=== PATIENT | female | born 1995 ===

== ENCOUNTER 2017-07-09 20:11 | Emergency (ER) | payer BC ==
[2017-07-09 20:28] VITALS: BP 109/76; PULSE 92; RESP 16; O2SAT 99
--- NOTE | 2017-07-09 22:34 | ED PDOC ---
HPI: Headache Time Seen by Provider: 07/09/17 22:20 Chief Complaint (Nursing): Headache Chief Complaint (Provider): headache History Per: Patient History/Exam Limitations: no limitations Onset/Duration Of Symptoms: Days (5) Current Symptoms Are (Timing): Still Present Associated Symptoms: Nausea, Vomiting Additional History Per: Patient Additional Complaint(s): 21 y/o female history of migraines presents with headache x 5 days. Patient states she hit the right side of her head on a bed post; did not lose consciousness but states she cried from the pain. Patient states since then she has been fatigued, seeing "stars" when she works out, and having right- sided headaches. Patient states today she developed bodyaches, felt chills, runny nose, sore throat, and vomited once. Denies dizziness, vision changes, numbness/weakness of extremities, cough, congestion, chest pain, shortness of breath, palpitations, abdominal pain, changes in bowel movements, recent travel , sick contacts. Tylenol taken in the am. Past Medical History Reviewed: Historical Data, Nursing Documentation, Vital Signs Vital Signs: Last Vital Signs Temp 100.4 F H 07/09/17 20:23 Pulse 92 H 07/09/17 20:23 Resp 16 07/09/17 20:23 BP 109/76 07/09/17 20:23 Pulse Ox 99 07/09/17 20:23 - Medical History PMH: Migraine - Surgical History Surgical History: No Surg Hx - Family History Family History: States: No Known Family Hx - Home Medications Home Medications: Ambulatory Orders Medication Instructions Recorded Ibuprofen [Motrin Tab] 1 tab PO Q6 PRN #15 tab 07/10/17 Oseltamivir [Tamiflu] 75 mg PO BID #10 cap 07/10/17 - Allergies Allergies/Adverse Reactions: Allergies Allergy/AdvReac Type Severity Reaction Status Date / Time No Known Allergies Allergy Verified 07/09/17 20:28 Review of Systems ROS Statement: Except As Marked, All Systems Reviewed And Found Negative Constitutional: Positive for: Fever, Chills ENT: Positive for: Nose Discharge, Throat Pain Neurological: Positive for: Headache Physical Exam - Reviewed Nursing Documentation Reviewed: Yes Vital Signs Reviewed: Yes - Physical Exam Appears: Positive for: Well, Non-toxic, No Acute Distress Head Exam: Positive for: ATRAUMATIC, NORMAL INSPECTION, NORMOCEPHALIC Skin: Positive for: Normal Color Eye Exam: Positive for: Normal appearance, EOMI, PERRL ENT: Positive for: Normal ENT Inspection Neck: Positive for: Normal, Painless ROM Cardiovascular/Chest: Positive for: Regular Rate, Rhythm Respiratory: Positive for: Normal Breath Sounds Gastrointestinal/Abdominal: Positive for: Normal Exam Back: Positive for: Normal Inspection Extremity: Positive for: Normal ROM Neurologic/Psych: Positive for: Alert, Oriented. Negative for: Motor/Sensory Deficits - Laboratory Results Urine POC: Negative Urine dip results: Positive for: Ketones. Negative for: Leukocyte Esterase, Blood, Nitrate - ECG O2 Sat by Pulse Oximetry: 99 - Progress ED Course And Treament: flu, CT head, urine, Tylenol PO EXAM: CT Head Without Intravenous Contrast CLINICAL HISTORY: The patient is a 21 years female; Injury or trauma; Injury Right temporal trauma ; Additional info: Head injury 07/09/2017 10:32 PM TECHNIQUE: Axial computed tomography images of the head/brain without intravenous contrast. All CT scans at this facility use one or more dose reduction techniques, viz.: automated exposure control; ma/kV adjustment per patient size (including targeted exams where dose is matched to indication; i.e. head); or iterative reconstruction technique. Coronal and sagittal reformatted images were created and reviewed. COMPARISON: No relevant prior studies available. FINDINGS: Brain: Streak artifact limits evaluation of the skull base. No evidence of acute intracranial hemorrhage. Correlate clinically. No significant white matter disease. No edema. Ventricles: Unremarkable. No ventriculomegaly. Bones/joints: Unremarkable. No acute fracture. Soft tissues: Unremarkable. Sinuses: Unremarkable as visualized. No acute sinusitis. Mastoid air cells: Unremarkable as visualized. No mastoid effusion. IMPRESSION: Streak artifact limits evaluation of the skull base. No evidence of acute intracranial hemorrhage. Correlate clinically. Repeat temp 98.0F. Patient no longer wishes to stay in ED any longer, would like to be discharged. Tolerated crackers. Patient educated on findings, discharged with rx Tamiflu, ibuprofen PO. Advised fluids, rest. Follow up PMD. Follow up Neuro Return precautions given. Disposition - Clinical Impression Clinical Impression: Viral syndrome, Headache - Disposition Referrals: Rodríguez Mathew MD [Staff Provider] - Disposition: Routine/Home Disposition Time: 01:00 Condition: IMPROVED Prescriptions: Ibuprofen [Motrin Tab] 1 tab PO Q6 PRN #15 tab PRN Reason: Pain, Moderate (4-7) Oseltamivir [Tamiflu] 75 mg PO BID #10 cap Instructions: Viral Syndrome (ED), Post Concussion Syndrome (ED) Forms: [facility] (Croatian), [facility] ED School/Work Excuse
[2017-07-10 06:54] VITALS: TEMP 98.6
--- NOTE | 2017-07-10 08:30 | CT ---
PROCEDURE: CT HEAD WITHOUT CONTRAST. HISTORY: Head injury COMPARISON: None available. TECHNIQUE: Axial computed tomography images were obtained through the head/brain without intravenous contrast. Radiation dose: Total exam DLP = 849.99 mGy-cm. This CT exam was performed using one or more of the following dose reduction techniques: Automated exposure control, adjustment of the mA and/or kV according to patient size, and/or use of iterative reconstruction technique. FINDINGS: HEMORRHAGE: No intracranial hemorrhage. BRAIN: Richardson-white matter differentiation is preserved. There is no mass, mass effect or abnormal extra-axial fluid collection. VENTRICLES: The ventricles are normal in size, shape and configuration. CALVARIUM: There is no calvarial fracture or extracranial soft tissue swelling. PARANASAL SINUSES: Predominantly clear. MASTOID AIR CELLS: Predominantly clear. OTHER FINDINGS: None. IMPRESSION: No acute intracranial abnormality. A preliminary report was provided by [employer] services.
== END 2017-07-10 01:00 | disposition home or self-care (01) ==
LOC: H.ER 20:11
DX: S09.90XA Unspecified injury of head, initial encounter (principal); W22.8XXA Striking against or struck by other objects, initial encounter; Y92.003 Bedroom of unspecified non-institutional (private) residence as the place of occurrence of the external cause; B34.9 Viral infection, unspecified